=== PATIENT | female | born 1980 | race Caucasian/White ===

== ENCOUNTER 2019-04-13 19:32 | Emergency (ER) | payer OTHER, MEDICAID ==
[~2019-04-13] VITALS: Ht 165.1 cm; Wt 104.3 kg
[~2019-04-13 19:32] MED LIST: BACTRIM DS TAB1 EACH PO; DIFLUCAN150 MG PO; HYDROCODONE-APA1 TA1 PO; KEFLEX500 MG PO; MACROBID 100 M100 M1 PO; MUPIROCIN1 GM TP; NOHOMEMEDICATIONS
[2019-04-13 19:53] LABS: URINE CLARITY CLOUDY; URINE COLOR RED
[2019-04-13 19:55] LABS: ABSOLUTE BASOPHILS 0.1 thou/uL (0.0-0.2); ABSOLUTE EOSINOPHILS 0.3 thou/uL (0.0-0.7); ABSOLUTE LYMPHOCYTES 1.4 thou/uL (0.8-5.3); ABSOLUTE MONOCYTES 0.7 thou/uL (0.0-1.2); ABSOLUTE NEUTROPHILS 9.9 thou/uL (1.6-8.1); BASOPHILS 0.5 %; EOSINOPHILS 2.2 %; HEMATOCRIT 38.6 % (37.0-47.0); HEMOGLOBIN 12.8 gm/dL (12.0-15.0); LYMPHOCYTES 11.5 %; MCH 29.7 pg (26.0-34.0); MCHC 33.1 g/dL (28.0-37.0); MCV 89.7 fL (80.0-100.0); MONOCYTES 5.4 %; MPV 7.8 fl. (7.2-11.1); NUCLEATED RBCS 0 /100WBC; PLATELET COUNT* 298 thou/uL (150-400); POLYS 80.4 %; RDW-CV 14.2 % (10.5-14.5); WBC 12.3 thou/uL (4.0-11.0)
[2019-04-13 20:00] LABS: URINE BILIRUBIN NEGATIVE (Negative); URINE BLOOD 3+ (Negative); URINE GLUCOSE-RANDOM NEGATIVE (Negative); URINE KETONES TRACE (Negative); URINE NITRITE-REFLEX NEGATIVE (Negative); URINE PROTEIN 2+ (Negative); URINE SPECIFIC GRAVITY > 1.030 (1.005-1.030); URINE UROBILINOGEN 0.2 E.U./dl (0.2-1.0)
[2019-04-13 20:01] LABS: SQUAMOUS 0-3 Few /LPF (0-3); URINE LEUKOCYTES-REFLEX NEGATIVE (Negative); URINE RBC >20 Many /HPF (0-2); URINE WBC-REFLEX None Seen /HPF (0-5)
[2019-04-13 20:02] LABS: BACTERIA-REFLEX None Seen /HPF (None Seen); CASTS None Seen /LPF (None Seen); CRYSTALS None Seen /LPF (None Seen); MUCUS 0-3 Light strn/LPF (None Seen)
[2019-04-13 20:24] LABS: CALCIUM 9.9 mg/dL (8.5-10.1); CREATININE 0.8 mg/dL (0.6-1.3); POTASSIUM 3.4 mmol/L (3.5-5.1)
[2019-04-13 20:25] LABS: APTT 27.8 Seconds (25.0-31.3); PROTIME 10.3 Seconds (9.20-11.50)
[2019-04-13 20:28] LABS: ALBUMIN 3.7 g/dL (3.4-5.0); TOTAL BILIRUBIN 0.3 mg/dL (<0.1-1.0); TOTAL PROTEIN 7.5 g/dL (6.4-8.2)
[2019-04-13] MEDS ORDERED: NORCO 5-325 TA1 EAC1 PO (21:03)
[2019-04-13 21:26] VITALS: BP 122/56
== END 2019-04-13 21:27 | disposition home or self-care (01) ==
LOC: M.ERS 19:32
PROVIDERS: Physician Assistant
DX: O03.9 Complete or unspecified spontaneous abortion without complication (principal); Z88.5 Allergy status to narcotic agent; Z3A.10 10 weeks gestation of pregnancy

== ENCOUNTER 2019-11-05 12:06 | Emergency (ER) | payer OTHER ==
[~2019-11-05] VITALS: Ht 165.1 cm; Wt 117.9 kg
[~2019-11-05 12:06] MED LIST changes: +NORCO 5-325 TA1 EAC1 PO
[2019-11-05 12:46] LABS: INFLUENZA A ANTIGEN Negative (Negative); INFLUENZA B ANTIGEN Negative (Negative)
[2019-11-05] MEDS ORDERED: PREDNISONE 20 M20 M1 PO (13:02)
[2019-11-05] MEDS ORDERED: AMOXICILLIN 50500 MG PO (13:02)
[2019-11-05 13:06] VITALS: BP 142/84
== END 2019-11-05 13:07 | disposition home or self-care (01) ==
LOC: M.ERS 12:06
PROVIDERS: Family Medicine
DX: J32.0 Chronic maxillary sinusitis (principal); Z98.890 Other specified postprocedural states; Z90.49 Acquired absence of other specified parts of digestive tract; Z88.5 Allergy status to narcotic agent